=== PATIENT | male | born 1950 | race Caucasian/White ===

== ENCOUNTER 2016-11-21 06:59 | Emergency (ER) | payer OTHER ==
[~2016-11-21] VITALS: Ht 175.3 cm; Wt 81.2 kg
[~2016-11-21 06:59] MED LIST: CHOLESTEROL PILL; IBUP-1050 PO; LORAZEPAM; OXYC-57 PO; PENI-82 PO; ZOLOFT
[2016-11-21 07:01] VITALS: TEMP 36.5; Ht 175.3 cm; Wt 81.2 kg
[2016-11-21 07:10] VITALS: O2SAT 98
[2016-11-21] MEDS ORDERED: KETOROLAC TROMETHAMINE 30 MG/ML VIAL IV STA (07:22)
[2016-11-21] MEDS ORDERED: ASPIRIN 81 MG CHEW PO STA (07:22)
[2016-11-21 07:36] LABS: BASO % 0.5 %; BASO ABS # 0.03 K/uL (0-0.2); COMPLETE YES; EOS % 1.8 %; IG% 0.2 %; LYMPH % 29.1 %; LYMPH ABS # 1.66 K/uL (1.2-3.4); MEAN CELL VOLUME 89.9 fL (80-100); MEAN CORPUSCULAR HEMOGLOBIN 32.3 pg (25-34); MEAN PLATELET VOLUME 10.4 fL (7.4-10.4); MONO % 11.4 %; PLATELET COUNT 174 K/uL (130-400); RED BLOOD COUNT 4.67 M/uL (4.7-6.1)
[2016-11-21 07:43] LABS: POINT OF CARE TROPONIN I < 0.030 ng/ml (0-0.045)
[2016-11-21] MEDS ORDERED: PRLSR20 PO (07:45)
[2016-11-21 07:48] LABS: PROTHROMBIN TIME (PATIENT) 10.5 SECONDS (9.0-12.0)
--- NOTE | 2016-11-21 07:50 | DIAGNOSTIC IMAGING REPORT ---
CHEST ONE VIEW PORTABLE CLINICAL HISTORY: Left-sided chest pain. COMPARISON STUDY: No previous studies for comparison. FINDINGS: Lung volumes are normal. Mild left basilar opacity favors atelectasis. Right lung is clear. There is no evidence of pulmonary edema. Patient is mildly rotated. Cardiac size is normal. Mediastinal contours are normal. IMPRESSION: 1. Mild left basilar opacity which favors atelectasis. An infectious process could appear similar although is considered less likely. 2. No evidence of pulmonary edema. Electronically signed by: Stanley Avendano M.D. 11/21/2016 7:48 AM Dictated Date/Time: 11/21/2016 7:47 AM
[2016-11-21 08:01] LABS: BUN/CREATININE RATIO 15.4 (10-20); CALCIUM 8.5 mg/dl (8.5-10.1); CREATININE 0.95 mg/dl (0.60-1.40); POTASSIUM 4.3 mmol/L (3.5-5.1)
[2016-11-21 08:06] LABS: ALB/GLOB RATIO 1.1 (0.9-2); CKMB/CK RATIO 1.2 (0-3.0)
--- NOTE | 2016-11-21 08:32 | EMERGENCY ROOM VISIT NOTE ---
History First contact with patient: 07:06 Chief Complaint: CHEST PAIN Stated Complaint: CHEST PAIN Nursing Triage Summary: Stabbing and burning left chest wall pain that began a couple of days ago. Increased pain with breathing. History of Present Illness Patient is a 66-year-old white male with past medical history significant for dyslipidemia, GERD and tobacco abuse who presents to the emergency department for evaluation of left-sided chest pain 2 days. He reports a constant, dull, aching pain under his left breast that radiated slightly towards his neck. The pain is worse with taking a deep breath, or bending over. He presently rates as a 6/10, states that at its worst he palpated a 7/10 and at its most mild he rated a 4/10. He denies any nausea or vomiting, lightheadedness or dizziness. No pain radiating into the arm or through to the back. He denies any palpitations, does not feel like he is short of breath, but just notes that he is limiting how deeply he takes a breath due to the discomfort. He has not been ill with any cold or upper respiratory symptoms. He has been coughing slightly, but attributes this to being around some dust from a home renovation project that he started this week. He has been doing some heavy lifting and exerting himself, but denies any direct trauma to the area. He has never had pain similar to this previously. He does have a history of acid reflux and is on omeprazole. He had an EGD 2 to evaluate this, but this was several years ago. He denies that this feels like his reflux. He does believe that he has a stress test about 5 years ago. He was on prescription medication for his cholesterol, but stopped this. He did have some blood work performed recently and he states that this was fine. He denies any family history of any cardiac disease. Review of Systems Review of systems as per HPI. All other systems reviewed were negative. 10 systems reviewed. Past Medical/Surgical History Medical Problems: (1) Anxiety (2) Dyslipidemia (3) GERD (gastroesophageal reflux disease) (4) Tobacco abuse Surgical Problems: (1) H/O hernia repair Electronic medical records are reviewed and summarized as above/below. See Problem List. Social History Smoking Status: Current Every Day Smoker Alcohol Use: occasionally Marital Status: Housing Status: lives with family Occupation Status: retired Current/Historical Medications Scheduled Omeprazole (Prilosec), 1 CAP PO DAILY Allergies Coded Allergies: No Known Allergies (Unverified Allergy, Mild, 10/17/06) Physical Exam Vital Signs Date Time Temp Pulse Resp B/P (MAP) Pulse Ox O2 Delivery O2 Flow Rate FiO2 11/21/16 08:48 69 18 152/94 97 11/21/16 08:12 66 18 140/88 98 Room Air 11/21/16 07:11 80 11/21/16 07:10 98 Room Air 11/21/16 07:04 96 Room Air 11/21/16 07:01 36.5 82 20 144/86 95 Room Air Physical Exam CONSTITUTIONAL: Patient is a pleasant, well-appearing 66-year-old white male who is awake and alert and in no acute distress. EYES: Pupils equal, round, reactive to light and accommodation. EOMs intact without nystagmus. Sclera are anicteric. ENT: Tympanic membranes intact, with normal landmarks. External canals are clear. Oral and nasopharynx are clear. Mucous membranes are moist, no lesions , tongue and gums appear normal. NECK: No bruits auscultated. Supple without lymphadenopathy. No thyromegaly. No meningeal signs. Full active range of motion without discomfort. CARDIOVASCULAR: Regular rate and rhythm, with normal S1 and S2, no murmur or gallop or rub is heard. No carotid bruits auscultated. No JVD. Peripheral pulses easy to palpable. RESPIRATORY: Breath sounds equal and clear to auscultation without wheezes, rales, or rhonchi heard. Full and equal chest expansion without accessory muscle use or retractions. There is some reproducible tenderness all over the left chest wall. GI: Bowel sounds are present. Abdomen is soft, nontender, nondistended. No organomegaly. No pulsatile masses. No guarding or rebound. MUSCULOSKELETAL: Full range of motion of extremities x 4 with good strength. No cyanosis, edema, joint tenderness or swelling. No deformity. INTEGUMENTARY: No lesions or rash, normal skin turgor. NEUROLOGICAL: Alert, oriented, and cooperative. Cranial nerves, sensation and strength grossly intact. Pupils round, equal, and react to light, EOMs are full. LYMPH: No lymphadenopathy. Medical Decision & Procedures ER Provider Diagnostic Interpretation: CHEST ONE VIEW PORTABLE CLINICAL HISTORY: Left-sided chest pain. COMPARISON STUDY: No previous studies for comparison. FINDINGS: Lung volumes are normal. Mild left basilar opacity favors atelectasis. Right lung is clear. There is no evidence of pulmonary edema. Patient is mildly rotated. Cardiac size is normal. Mediastinal contours are normal. IMPRESSION: 1. Mild left basilar opacity which favors atelectasis. An infectious process could appear similar although is considered less likely. 2. No evidence of pulmonary edema. Laboratory Results 11/21/16 07:15 Red Blood Count 4.67, Mean Corpuscular Volume 89.9, Mean Corpuscular Hemoglobin 32.3, Mean Corpuscular Hemoglobin Concent 36.0, Mean Platelet Volume 10.4, Neutrophils (%) (Auto) 57.0, Lymphocytes (%) (Auto) 29.1, Monocytes (%) (Auto) 11.4, Eosinophils (%) (Auto) 1.8, Basophils (%) (Auto) 0.5, Neutrophils # (Auto ) 3.25, Lymphocytes # (Auto) 1.66, Monocytes # (Auto) 0.65, Eosinophils # (Auto ) 0.10, Basophils # (Auto) 0.03 11/21/16 07:15 Test 11/21/16 07:15 11/21/16 07:22 11/21/16 07:24 White Blood Count 5.70 K/uL (4.8-10.8) Red Blood Count 4.67 M/uL (4.7-6.1) Hemoglobin 15.1 g/dL (14.0-18.0) Hematocrit 42.0 % (42-52) Mean Corpuscular Volume 89.9 fL (80-100) Mean Corpuscular Hemoglobin 32.3 pg (25-34) Mean Corpuscular Hemoglobin Concent 36.0 g/dl (32-36) Platelet Count 174 K/uL (130-400) Mean Platelet Volume 10.4 fL (7.4-10.4) Neutrophils (%) (Auto) 57.0 % Lymphocytes (%) (Auto) 29.1 % Monocytes (%) (Auto) 11.4 % Eosinophils (%) (Auto) 1.8 % Basophils (%) (Auto) 0.5 % Neutrophils # (Auto) 3.25 K/uL (1.4-6.5) Lymphocytes # (Auto) 1.66 K/uL (1.2-3.4) Monocytes # (Auto) 0.65 K/uL (0.11-0.59) Eosinophils # (Auto) 0.10 K/uL (0-0.5) Basophils # (Auto) 0.03 K/uL (0-0.2) RDW Standard Deviation 43.3 fL (36.4-46.3) RDW Coefficient of Variation 13.2 % (11.5-14.5) Immature Granulocyte % (Auto) 0.2 % Immature Granulocyte # (Auto) 0.01 K/uL (0.00-0.02) Prothrombin Time 10.5 SECONDS (9.0-12.0) Prothromb Time International Ratio 1.0 (0.9-1.1) Activated Partial Thromboplast Time 26.4 SECONDS (21.0-31.0) Partial Thromboplastin Ratio 1.0 Anion Gap 6.0 mmol/L (3-11) Est Creatinine Clear Calc Drug Dose 76.5 ml/min Estimated GFR () 96.3 Estimated GFR (Non- 83.1 BUN/Creatinine Ratio 15.4 (10-20) Calcium Level 8.5 mg/dl (8.5-10.1) Total Bilirubin 0.5 mg/dl (0.2-1) Aspartate Amino Transf (AST/SGOT) 16 U/L (15-37) Alanine Aminotransferase (ALT/SGPT) 29 U/L (12-78) Alkaline Phosphatase 59 U/L (45-117) Total Creatine Kinase 106 U/L (39-308) Creatine Kinase MB 1.3 ng/ml (0.5-3.6) Total Protein 6.7 gm/dl (6.4-8.2) Albumin 3.5 gm/dl (3.4-5.0) Globulin 3.2 gm/dl (2.5-4.0) Albumin/Globulin Ratio 1.1 (0.9-2) Creatine Kinase MB Ratio (0-3.0) Bedside D-Dimer 425 ng/mlFEU (0-450) Bedside Troponin I < 0.030 ng/ml (0-0.045) Medications Administered Medications (Trade) Dose Ordered Sig/Sana Route Start Time Stop Time Status Last Admin Dose Admin Aspirin (Aspirin Chew) 324 mg NOW STAT PO 11/21/16 07:22 11/21/16 07:24 DC 11/21/16 07:34 324 MG Ketorolac Tromethamine (Toradol Inj) 30 mg NOW STAT IV 11/21/16 07:22 11/21/16 07:24 DC 11/21/16 07:33 30 MG ECG Indication: chest pain Rate (beats per minute): 66 Rhythm: normal sinus Findings: no acute ischemic change, no ectopy Change: no significant change ED Course The patient was seen and evaluated as above. Old records are reviewed. He has no recent ED visits pertinent to this complaint. IV lock was initiated. EKG was performed and was as noted above. Patient was placed on conveyor monitor. Laboratory studies were collected. Patient was medicated with Toradol 30 mg IV and given aspirin 324 mg chewable. Chest x-ray was obtained and noted some left basilar atelectasis. There is no evidence for pulmonary edema. Laboratory studies noted a white count 5700, H&H 15 and 42. PT/INR are within normal limits. Electrolytes and renal functions are normal. Liver functions are not elevated. Cardiac enzymes are negative 1 with symptoms greater than 24 hours. Hodcd-xl-dfny d-dimer was within normal limits, given this and lack of PE risk factors, further workup for PE was not pursued. Urine dip was clear. All laboratory and diagnostic imaging studies were reviewed with attending physician who also independently evaluated the patient. Differential diagnosis includes acute myocardial infarction, acute coronary syndrome, myocarditis, pericarditis, esophageal perforation, pulmonary embolism, pneumonia, pneumothorax, cardiomyopathy, congestive heart failure, anemia, COPD exacerbation, musculoskeletal, anxiety, costochondritis, among others. The patient's pain is reproducible over the left chest wall, and I suspect is musculoskeletal, particularly given his recent activity with his home renovation. He did report some relief of his discomfort with the IV Toradol. Conservative care measures were discussed. The patient was encouraged to rest, use an anti-inflammatory medicine and apply heat to the area, however was educated on the worrisome signs or symptoms for which he should return to the emergency department. He was also advised that he would need close follow-up with his primary care provider for further care and management, and possibly for further cardiac testing as an outpatient including an echocardiogram and a stress test. He expressed understanding of this and was agreeable. The patient was discharged home with his in good condition. Medical Decision See Emergency Department course. Impression Primary Impression: Left sided chest pain Departure Information Referrals No Doctor, Assigned (PCP) Patient Instructions My [facility] Additional Instructions Ibuprofen(Motrin, Advil) may be used for fever or pain. Use 600mg every six hours as needed. Take with food. Avoid using more than 2400mg in a 24 hour period. Do not use 2400mg per day for more than three consecutive days without physician direction. Prolonged inappropriate use can lead to stomach upset or ulcers. (AND/OR) Acetaminophen(Tylenol) may be used for fever or pain. Use 1000mg every six hours as needed. Avoid using more than 3000mg in a 24 hour period. Rest and drink plenty of fluids as tolerated. Continue current medications. Avoid strenuous activities and anything that worsens your pain. Resume normal activities once your symptoms resolve. Return to the ER immediately for worsening or persistent chest pain, abdominal pain, vomiting, fevers, chest pains, difficulty breathing, worsening of your condition, or as needed. Follow up with your primary physician in 2-3 days for a recheck of your current condition.
--- NOTE | 2016-11-21 08:37 | EMERGENCY ROOM VISIT NOTE ---
ED Visit Note First contact with patient: 07:06 66-year-old male with left-sided chest pain was fully evaluated by Danielle Farley PA-C. Please see her note. I also independently evaluated the patient. The patient has point tenderness beneath the left breast. Multiple labs and imaging were performed. The patient appears to have musculoskeletal chest pain.
[2016-11-21 08:48] VITALS: BP 152/94; PULSE 69; O2SAT 97
== END 2016-11-21 08:49 | disposition home or self-care (01) ==
LOC: C.EDB 07:00 → C.EDA 08:49
DX: R07.9 Chest pain, unspecified (principal); E78.5 Hyperlipidemia, unspecified; K21.9 Gastro-esophageal reflux disease without esophagitis; F17.200 Nicotine dependence, unspecified, uncomplicated; F41.9 Anxiety disorder, unspecified

== ENCOUNTER → 2017-10-19 | Day surgery (SDC) | payer OTHER ==
[2017-10-13 08:49] VITALS: Ht 175.3 cm; Wt 83.6 kg
[~2017-10-19] VITALS: Ht 175.3 cm; Wt 83.6 kg
[~2017-10-19] MED LIST changes: -CHOLESTEROL PILL; -IBUP-1050 PO; +LIDOCAINE HCL 2% 2 ML VIAL (20MG/ML) ONE; -LORAZEPAM; +OMEP20TA PO; -OXYC-57 PO; -PENI-82 PO; +PROPOFOL IV EMULSION 10 MG/ML 20 ML VIAL ONE; +SYMIN/8045 INH; -ZOLOFT
--- NOTE | 2017-10-19 14:27 | Endo History and Physical ---
History & Physical Date of Service: October 19, 2017. Chief Complaint: screening Referring Physician: [facility],Yung Marcus PA-C History of Present Illness 67 yo CM who presents for screening colonoscopy. Past Surgical History Hx Cardiac Surgery: No Hx Internal Defibrillator: No Hx Pacemaker: No Hx Abdominal Surgery: Yes (HERNIA) Hx of Implantable Prosthesis: No Hx Post-Op Nausea and Vomiting: No Hx Cancer Surgery: No Hx Thoracic Surgery: No Hx Orthopedic: No Hx Urinary Tract Surgery: No Social History Smoking Status: Current Every Day Smoker Hx Substance Use: No Hx Alcohol Use: Yes (1-2 BEERS EVERY COUPLE DAYS) Allergies Coded Allergies: No Known Allergies (Verified , 10/19/17) Current Medications Reported Home Medications Medications Dose Route/Sig Max Daily Dose Days Date Category Symbicort 80/4.5 Inhaler (Budesonide/Formoterol Fumarate) Aero 2 Puffs INH DAILY 10/13/17 Reported Omeprazole 20 Mg Tab 1 Tab PO DAILY 90 10/13/17 Reported Vital Signs Weight (Kilograms): 83.64 Height (Feet): 5 Height (Inches): 9 Date Time Temp Pulse Resp B/P (MAP) Pulse Ox O2 Delivery O2 Flow Rate FiO2 10/19/17 13:46 36.6 80 20 132/74 (93) 98 Room Air Physical Exam General Appearance: WD/WN, no apparent distress Respiratory/Chest: Auscultation: breath sounds normal Cardiovascular: Heart Auscultation: RRR Abdomen: Bowel Sounds: normal Inspection & Palpation: soft, non-distended, no tenderness, guarding & rebound Assessment and Plan Assessment: 67 yo CM who presents for screening colonoscopy. Plan: Proceed with colonoscopy.
--- NOTE | 2017-10-19 15:00 | Discharge Instructions ---
Endoscopy Patient Instructions Date / Procedure(s) Performed October 19, 2017. Colonoscopy Allergy Information Coded Allergies: No Known Allergies (Verified , 10/19/17) Discharge Date / Findings October 19, 2017. Colon polyps Medication Instructions OK to resume all medications today as prescribed Reported Home Medications Medications Dose Route/Sig Max Daily Dose Days Date Category Symbicort 80/4.5 Inhaler (Budesonide/Formoterol Fumarate) Aero 2 Puffs INH DAILY 10/13/17 Reported Omeprazole 20 Mg Tab 1 Tab PO DAILY 90 10/13/17 Reported Provider Instructions Activity Restrictions - No exercising or heavy lifting for 24 hours. - Do not drink alcohol the day of the procedure. - Do not drive a car or operate machinery until the day after the procedure. - Do not make any important decisions or sign important papers in 24 hours after the procedure. Following Day: - Return to full activity which may include returning to work/school. Diet Start your diet with liquids and light foods (jello, soup, juice, toast). Then eat your usual diet if not nauseated. Treatment For Common After Affects For mild abdominal pain, bloating, or excessive gas: - Rest - Eat lightly - Lie on right side Follow-Up Information Follow-up with [facility],Yung Marcus PA-C as scheduled Anesthesia Information What You Should Know You have had a procedure that required some medicine to reduce anxiety and discomfort. This treatment is called moderate sedation. After receiving the treatment, you may be sleepy, but you will be able to breathe on your own. The effects of the treatment may last for several hours. Follow these instructions along with Activity/Diet recommendations noted above: * Do NOT do anything where dizziness or clumsiness would be dangerous. * Rest quietly at home today, then you can be up and about tomorrow. * Have a responsible person stay with you the rest of today. * You may have had an I.V. today. If so, you may take the dressing off later today. Recommendations Call your doctor if: * Trouble breathing * Continuous vomiting for more than 24 hours * Temperature above 101 degrees * Severe abdominal pain or bloating * Pain not relieved by pain medicine ordered * There is increased drainage or redness from any incision * A large amount of rectal bleeding greater than 2-3 tablespoons. (If you had a polyp/s removed or have hemorrhoids, a small amount of blood - from the rectum is to be expected.) * You have any unanswered questions or concerns. IN THE EVENT OF A SERIOUS EMERGENCY, GO TO THE NEAREST EMERGENCY ROOM Your discharge instructions were prepared by provider Bob Mendoza. Patient Instructions Signature Page Stephen Guadalupe Patient (or Guardian) Signature/Date: I have read and understand the instructions given to me by my caregivers. Caregiver/RN/Doctor Signature/Date: The above-named patient and/or guardian has received patient instructions on this date. + Original Patient Signature Page (only) stays with chart. Please make copy for patient.
[2017-10-19 15:26] VITALS: BP 154/92; PULSE 75; O2SAT 99
--- NOTE | 2017-10-19 15:27 | Anesthesiology Progress Note ---
Anesthesia Post Op Note Date & Time October 19, 2017 at 15:26 Vital Signs Pain Intensity: 0 Vital Signs Past 12 Hours Date Time Temp Pulse Resp B/P (MAP) Pulse Ox O2 Delivery O2 Flow Rate FiO2 10/19/17 15:11 77 16 106/69 (81) 98 Room Air 10/19/17 14:57 77 12 103/68 (80) 96 Nasal Cannula 5 10/19/17 13:46 36.6 80 20 132/74 (93) 98 Room Air Notes Mental Status: alert / awake / arousable, participated in evaluation Pt Amnestic to Procedure: Yes Nausea / Vomiting: adequately controlled Pain: adequately controlled Airway Patency, RR, SpO2: stable & adequate BP & HR: stable & adequate Hydration State: stable & adequate Anesthetic Complications: no major complications apparent
--- NOTE | 2017-10-19 15:47 | GI REPORT ---
Patient Name: Stephen Guadalupe Procedure Date: 10/19/2017 2:04 PM Date of : 1950 Admit Type: Outpatient Age: 67 Gender: Male Attending MD: Bob Mendoza DO Procedure: Colonoscopy Providers: Bob Mendoza DO Referring MD: Mesha Marcus Indications: Screening for colorectal malignant neoplasm Medicines: Monitored Anesthesia Care Complications: No immediate complications. Estimated Blood Loss: Estimated blood loss: none. Procedure: Pre-Anesthesia Assessment: - Prior to the procedure, a History and Physical was performed, and patient medications and allergies were reviewed. The patient's tolerance of previous anesthesia was also reviewed. The risks and benefits of the procedure and the sedation options and risks were discussed with the patient. All questions were answered, and informed consent was obtained. Prior Anticoagulants: The patient has taken no previous anticoagulant or antiplatelet agents. ASA Grade Assessment: III - A patient with severe systemic disease. After reviewing the risks and benefits, the patient was deemed in satisfactory condition to undergo the procedure. After I obtained informed consent, the scope was passed under direct vision. Throughout the procedure, the patient's blood pressure, pulse, and oxygen saturations were monitored continuously. The On-site loaner was introduced through the anus and advanced to the terminal ileum. The colonoscopy was performed without difficulty. The patient tolerated the procedure well. The quality of the bowel preparation was good. The terminal ileum, ileocecal valve, appendiceal orifice, and rectum were photographed. Findings: The perianal and digital rectal examinations were normal. Two sessile polyps were found in the transverse colon. The polyps were 4 to 7 mm in size. These polyps were removed with a hot snare. Resection and retrieval were complete. Impression: - Two 4 to 7 mm polyps in the transverse colon, removed with a hot snare. Resected and retrieved. Recommendation: - Resume previous diet. - Continue present medications. - Repeat colonoscopy for surveillance based on pathology results. - Return to primary care physician as previously scheduled. Bob Mendoza DO 10/19/2017 3:10:12 PM This report has been signed electronically. Note Initiated On: 10/19/2017 2:04 PM Number of Addenda: 0 I attest to the content of the Intraoperative Record and orders documented therein, exceptions below {[id number]}
== END | disposition home or self-care (01) ==
LOC: C.GI 13:22
PROVIDERS: ATTEND Internal Medicine
DX: Z12.11 Encounter for screening for malignant neoplasm of colon (principal); D12.3 Benign neoplasm of transverse colon; F17.200 Nicotine dependence, unspecified, uncomplicated; J44.9 Chronic obstructive pulmonary disease, unspecified; K21.9 Gastro-esophageal reflux disease without esophagitis; F41.9 Anxiety disorder, unspecified; F32.9 Major depressive disorder, single episode, unspecified